=== PATIENT | male | born 1955 | race Caucasian/White ===

== ENCOUNTER 2022-02-17 15:19 | Outpatient (CLI) | payer MEDICARE, SELFPAY ==
--- NOTE | ~2022-02-17 | XR_ITS ---
EXAMINATION: XR abdomen/kub 1V INDICATION: Calcium kidney stone TECHNIQUE: Supine views of the abdomen were obtained on 2 radiographs. COMPARISON: CT from today FINDINGS: Bowel contents project over the kidneys limiting sensitivity for renal stones. A 3 mm stone is seen in the upper pole of the left kidney. Additional nonobstructing calculi identified on today' s CT examination are not seen. No stones project in the expected location of the ureters or bladder. A right pelvic phlebolith is noted. There is calcified atherosclerosis. The bowel gas pattern is norm al. IMPRESSION: 1. Left nephrolithiasis. Reviewed, dictated and finalized at location F. IMPRESSION: 1. Left nephrolithiasis.
--- NOTE | ~2022-02-17 | CT_ITS ---
EXAMINATION: CT abdomen pelvis wo con DATE: 02/17/2022 15:54 INDICATION: Calcium kidney stone TECHNIQUE: Computed tomography (CT) of the abdomen and pelvis was performed without intravenous contr ast. Automated exposure control and iterative reconstruction technique were employed. Exam dose: 443 .59 mGy-cm total exam DLP. COMPARISON: 02/17/2022 KUB FINDINGS: Minimal discoid atelectasis or scarring at the base of the lingula and lower lobes. No cons olidation at the lung bases. Normal heart size. No pericardial or pleural effusion. The liver, gallbladder, bile ducts, pancreas, pancreatic duct, spleen and adrenal glands are unremark able. Left renal mild scarring. 5.8 mm upper pole and 3.5 mm lower pole left renal calculi. 3.6 mm upper pole nonobstructing right renal calculus. Pinpoint nonobstructing lower pole right renal calculus. No ureteral calculus or hydroureteronephrosis of either kidney is noted. Probable bilateral renal cysts, measuring up to a little over 2 cm maximal dimension on the right, 1. 3 cm dimension on the left. Visceral lesions would be more accurately evaluated on a CT examination w ith IV contrast material. Normal appendix. Minimal diverticulosis of the colon; no CT evidence of diverticulitis. No bowel obst ruction, bowel wall thickening, pneumatosis or intraperitoneal free air. There is atherosclerotic calcification but normal caliber of the abdominal aorta and iliac arteries. The urinary bladder, prostate gland and seminal vesicles are unremarkable. Small bilateral fat-containing inguinal hernias, larger on the left. Small fat-containing umbilical hernia. Moderately prominent anterior wedge compression fracture deformity of L1, likely chronic. Degenerative changes of the lower thoracic and lumbar spine. IMPRESSION: Nonobstructive left and right mild nephrolithiasis Bilateral renal cysts Left renal scarring Minimal diverticulosis of the colon Normal appendix Reviewed, dictated and finalized at Location A. Reviewed, dictated and finalized at location A.
== END 2022-02-17 15:20 | disposition home or self-care (01) ==
PROVIDERS: PCP Internal Medicine; Visit Provider Urology
DX: N20.0 Calculus of kidney (principal); N28.1 Cyst of kidney, acquired
CPT/HCPCS: 74018; 74176

== ENCOUNTER 2022-04-07 09:58 | Outpatient (CLI) | payer MEDICARE, SELFPAY ==
--- NOTE | 2022-04-07 10:44 | ECG_ITS ---
Measurements Intervals [place] Rate: 98 P: 153 SD: 116 QRS: -29 QRSD: 97 T: -28 QT: 336 QTc: 429 Interpretive Statements SINUS RHYTHM WITH SHORT SD INTERVAL BORDERLINE LEFT AXIS DEVIATION [QRS AXIS < -20] CANNOT RULE OUT INFERIOR INFARCTION NONSPECIFIC T-WAVE ABNORMALITY ABNORMAL ECG NO PREVIOUS ECG AVAILABLE FOR COMPARISON Electronically Signed On 04-07-2022 12:28:57 CDT by Brando Campos M.D.
[2022-04-07 11:07] LABS: Basophils Absolute Auto 0.1 K/mm3 (0.0-0.1); Basophils Percent Auto 0.7 % (0.2-1.2); Eosinophils Absolute Auto 0.2 K/mm3 (0-0.3); Eosinophils Percent Auto 2.3 % (0-4.4); Hematocrit 56.5 % (42.0-52.0); Hemoglobin 18.3 g/dL (14.0-18.0); Immature Granulocyte Absolute 0.03 K/mm3 (0.00-0.031); Immature Granulocyte Percent A 0.4 % (0-0.5); Lymphocytes Absolute Auto 1.19 K/mm3 (0.9-3.2); Lymphocytes Percent Auto 16.2 % (18.3-44.2); Mean Corpuscular HGB Conc 32.4 g/dl (32-36); Mean Corpuscular Hemoglobin 29.7 pg (26-34); Mean Corpuscular Volume 91.6 fl (80-100); Mean Platelet Volume 10.7 fl (7.4-10.4); Monocytes Absolute Auto 0.5 K/mm3 (0.1-0.6); Monocytes Percent Auto 7.2 % (2.6-8.5); Neutrophils Absolute Auto 5.4 K/mm3 (1.3-6.7); Neutrophils Percent Auto 73.2 % (45.5-73.1); Platelet Count Result 185 k/mm3 (150-375); Red Blood Count 6.17 M/mm3 (4.6-6.20); Red Cell Distribution Width 13.8 % (11.5-14.5); White Blood Count 7.4 K/mm3 (4.5-10.0)
[2022-04-07 11:17] LABS: Alanine Aminotransferase 38 U/L (6-50); Albumin Level 4.8 g/dL (3.5-5.1); Alkaline Phosphatase 69 U/L (38-126); Anion Gap 10 mmol/L (8-16); Aspartate Amino Transferase 29 U/L (17-59); Bilirubin,Total 0.7 mg/dL (0.2-1.3); Blood Urea Nitrogen 23 mg/dL (9-20); Calcium 9.9 mg/dL (8.4-10.2); Carbon Dioxide 26 mmol/L (22-30); Chloride 97 mmol/L (98-107); Estimated Glomerular Filt Rate 60; Glucose 329 mg/dL (65-110); INR 1.1; Potassium 4.4 mmol/L (3.4-5.0); Prothrombin Time 13.5 Seconds (11.1-14.7); Sodium 133 mmol/L (137-145)
[2022-04-07 11:18] LABS: Partial Thromboplastin Time 31.8 SECONDS (22.3-36.8)
== END 2022-04-07 09:59 | disposition home or self-care (01) ==
LOC: ANHSURGERY 10:03
PROVIDERS: PCP Internal Medicine; Visit Provider Urology
DX: C61 Malignant neoplasm of prostate (principal); Z01.818 Encounter for other preprocedural examination; I10 Essential (primary) hypertension; R94.31 Abnormal electrocardiogram [ECG] [EKG]
CPT/HCPCS: 36415; 80053; 85025; 85610; 85730; 86850; 86900; 86901; 87086; 93005

== ENCOUNTER 2022-04-19 08:21 | Outpatient (CLI) | payer MEDICARE, SELFPAY ==
--- NOTE | 2022-04-19 | EST_ITS ---
Patient Info Name: Loyd Ellison Age: 67 years : 1955 Gender: Male Ht: 75 in Wt: 222 lbs BSA: 2.32 m2 HR: 92 bpm BP: 148 / 83 mmHg Heart Rhythm: Sinus Rhythm Exam Date: 04/19/2022 8:51 AM Exam Location: [facility] Stress Patient Status: Outpatient Admit Date: 04/19/2022 Staff Ordering Physician: Shannon, Moses Reyes MD Attending Provider: Shannon, Moses Reyes MD Exercise Technologist: Rimma Hawkins CT Exercise Physician: Leopoldo Wright DO Exam Type: CA stress test treadmill Study Info Indications Z01.810 - Encounter for preprocedural cardiovascular examination R94.31 - Abnormal electrocardiogram ECG EKG A treadmill exercise stress test was performed. Summary 1. 1. Negative Reg exercise stress test for ischemic ST changes by ECG criteria. 2. 2. Reduced functional capacity, achieving 7 METs of workload. 3. 3. Baseline hypertension. 4. 4. Appropriate HR response to exercise. 5. 5. Appropriate HR recovery at 1 minute post exercise. 6. 6. No imaging with stress testing. 7. 7. Patient informed of the above results. Protocol: Reg Stress ECG Details Stage: REST Duration (min): 1 min : 18 sec Speed (mph): 0.0 Grade (%): 0 HR (bpm): 91 SBP (mmHg): 148 DBP (mmHg): 83 METS: --- Stage: REST Duration (min): 5 min : 34 sec Speed (mph): 0.0 Grade (%): 0 HR (bpm): 91 SBP (mmHg): 148 DBP (mmHg): 83 METS: --- Stage: STAGE 1 Duration (min): 1 min : 0 sec Speed (mph): 1.7 Grade (%): 10 HR (bpm): 107 SBP (mmHg): 148 DBP (mmHg): 83 METS: --- Stage: STAGE 1 Duration (min): 2 min : 0 sec Speed (mph): 1.7 Grade (%): 10 HR (bpm): 118 SBP (mmHg): 148 DBP (mmHg): 83 METS: --- Stage: STAGE 1 Duration (min): 3 min : 0 sec Speed (mph): 1.7 Grade (%): 10 HR (bpm): 125 SBP (mmHg): 191 DBP (mmHg): 80 METS: --- Stage: STAGE 2 Duration (min): 1 min : 0 sec Speed (mph): 2.5 Grade (%): 12 HR (bpm): 135 SBP (mmHg): 191 DBP (mmHg): 80 METS: --- Stage: STAGE 2 Duration (min): 2 min : 0 sec Speed (mph): 2.5 Grade (%): 12 HR (bpm): 141 SBP (mmHg): 206 DBP (mmHg): 82 METS: --- Stage: STAGE 2 Duration (min): 3 min : 0 sec Speed (mph): 2.5 Grade (%): 12 HR (bpm): 145 SBP (mmHg): 206 DBP (mmHg): 82 METS: --- Stage: RECOVERY Duration (min): 0 min : 59 sec Speed (mph): 0.0 Grade (%): 0 HR (bpm): 128 SBP (mmHg): 209 DBP (mmHg): 80 METS: --- Stage: RECOVERY Duration (min): 1 min : 59 sec Speed (mph): 0.0 Grade (%): 0 HR (bpm): 109 SBP (mmHg): 209 DBP (mmHg): 80 METS: --- Stage: RECOVERY Duration (min): 2 min : 58 sec Speed (mph): 0.0 Grade (%): 0 HR (bpm): 106 SBP (mmHg): 194 DBP (mmHg): 82 METS: --- Rest HR: 91 bpm Peak HR: 145 bpm Rest Sys BP: 148 mmHg Peak Sys BP: 209 mmHg Max Pred HR: 1
== END 2022-04-19 08:22 | disposition home or self-care (01) ==
LOC: ANHCARD 08:27
PROVIDERS: PCP Internal Medicine; Visit Provider Internal Medicine
DX: R94.31 Abnormal electrocardiogram [ECG] [EKG] (principal); I10 Essential (primary) hypertension
CPT/HCPCS: 93017

== ENCOUNTER 2022-04-21 16:13 | Observation (INO) | payer MEDICARE, SELFPAY ==
--- NOTE | 2022-04-07 09:49 | PC.NURSE ---
Report to the Outpatient Waiting Room, entrance under the green pavilion located off [facility], at time _0600_ on date _04/20/22_. OR Time: _0730_. - You and your visitor will be asked a series of questions to screen for COVID 19 for your protection. - Only one visitor is allowed at this time. VISITING HOURS 10AM-8PM, USE MAIN HOSPITAL ENTRANCE - The patient visitor is requested to leave or wait in car when not with patient. - A mask is required within the hospital. Patients may have clear liquids (water, carbonated beverages, clear teas, apple juice) until 3 hours prior to surgery (0430 AM) with a maximum of 20 ounces. - No food from midnight until time of surgery Take the following medications with a SIP of water the morning of surgery: _NONE_ Medications to discontinue per DR. HENDERSON - ASPIRIN, ASPIRIN PRODUCTS, ADVIL, MOTRIN - etc., VITAMINS, SUPPLEMENTS, HERBAL SUPPLEMENTS 7 DAYS PRIOR TO SURGERY, Date to take last dose 04/12/22_ Please no deodorant, or body powder the day of surgery. No jewelry (including any body piercings) or valuables the day of surgery, leave them at home. Please take a shower or bath the night before, or the morning of, surgery with an antibacterial soap. Wear comfortable, loose fitting clothing. - Jewelry must be removed prior to entering the operating room. Rings and piercings that are not removed may be cut off. - The hospital will not accept responsibility for valuables. - Please leave all valuables, including medications, at home the day of surgery. If you are going home after surgery, a licensed ambulette driver must drive you home. - NO public transportation without another adult. - We recommend that an adult stay with you for 24 hours following discharge. - We also recommend that you do not drive, make important decision, drink alcoholic beverages, or take any drugs that were not prescribed by your health care provider for at least 24 hours after your discharge time. Follow any additional instructions given to you from your surgeon. If you or anyone in your household have experienced Covid symptoms in the past week, please notify your surgeon or the nurse liaison at the phone number below for possible testing. Instructions given to ___PT__and asked if any additional questions and then verbalized understanding. Patient advised to call surgeon office or pre surgery nurse liaison [phone] if any additional questions.
[2022-04-07 10:25] VITALS: BP 156/82; PULSE 100; RESP 20; TEMP 36.8; O2SAT 98; BMI 28.3
[2022-04-20] VITALS (16 sets, daily range): BP systolic 111–144; BP diastolic 56–93; PULSE 87–100; RESP 11–20; TEMP 35.8–36.8; O2SAT 90–100
--- NOTE | 2022-04-20 06:52 | WPDHPUPDATE1 ---
History and Physical Update Update Date/Time: 04/20/22 06:52 History and Physical has been reviewed, including an updated exam of the patient. There are NO changes in the patient's condition. Risks, benefits, and alternatives have been discussed and questions answered. Patient agrees to proceed with procedure. Proceed with robotic assist nerve sparing prostatectomy with possible plnd.
[2022-04-20 06:57] LABS: Glucose Point of Care 105 mg/dl (65-105)
--- NOTE | 2022-04-20 07:04 | WPDANESEPPF ---
Anes - Initial Pre Proc Eval Procedure: Operation Date: 04/20/22 07:30 Proposed Procedures p Robotic Assisted Nerve Sparing Prostatectomy, Possible Bilateral Pelvic Lymph Node Dissection - Alan Hebert MD Date/Time: 04/20/22 07:04 Surgeon: Alan Hebert MD Pre Op Diagnosis: Prostate Ca Patient Data Age: 67 Gender: M Height: 1.89 m Weight: 99.7 kg Last Vital Signs Temp 36.4 C L 04/20/22 06:10 Pulse 97 04/20/22 06:10 Resp 16 04/20/22 06:10 BP 144/80 H 04/20/22 06:10 Pulse Ox 94 04/20/22 06:10 O2 Del Method Room Air 04/20/22 06:10 Allergies Allergy/AdvReac Type Severity Reaction Status Date / Time ceftriaxone [From Rocepwin] Allergy Intermediate Hives,dizzi Verified 04/20/22 06:20 ness codeine AdvReac Mild Nausea Verified 04/20/22 06:20 Home Medications Medication Instructions Recorded Confirmed Type aspirin 81 mg tablet,delayed 81 mg PO DAILY 04/07/22 04/20/22 History release dapagliflozin 10 mg tablet 1 tablet QAM 04/07/22 04/20/22 History (Farxiga) dulaglutide 1.5 mg/0.5 mL 3 mg subcut WEEKLY 04/07/22 04/20/22 History subcutaneous pen injector (Trulicity) dutasteride 0.5 mg capsule 1 cap PO HS 04/07/22 04/20/22 History fosinopril 20 1 tablet BID 04/07/22 04/20/22 History mg-hydrochlorothiazide 12.5 mg tablet glimepiride 4 mg tablet 1 tablet BID 04/07/22 04/20/22 History insulin glargine U-300 conc 300 See Rx Instructions .Route .COMPLEX 04/07/22 04/20/22 History unit/mL (1.5 mL) subcutaneous pen (Touangel SoloStar U-300 Insulin) metformin 1,000 mg tablet 1,000 tablet BID 04/07/22 04/20/22 History rosuvastatin 40 mg tablet 1 tablet HS 04/07/22 04/20/22 History tadalafil 20 mg tablet 20 mg PO DAILY PRN Erectile 04/07/22 04/20/22 History Dysfunction Laboratory Tests 04/20/22 06:51 POC Capillary Glucose 105 mg/dl mg/dl (65-105) Patient hx anesthesia problems: none Family hx anesthesia problems: none Results Review: All pre-operative results and documents have been reviewed as part of the pre-operative evaluation. [facility] Past Medical History Medical History Diabetes Hyperlipidemia Hypertension Prostate CA Social History Social History Smoking status: Never smoker Second hand tobacco smoke exposure: No Alcohol intake: never Substance use: never Substance use type: does not use Living arrangements: with family Spiritual care concerns: No Anes - Eval Final PreProcedure Day of Procedure 04/20/22 07:04 Patient weight: overweight Heart: regular rate and rhythm Lungs: clear to auscultation Airway: Mallampati scale class II Neurological: alert and oriented Last oral intake: >/= 8 hours ASA classification: III Emergent: no Anesthetic plan: proceed Anesthesia type and monitoring: general ETT and standard monitoring Results Review: All pre-operative results and documents have been reviewed as part of the pre-operative evaluation. Informed Consent: The patient's anesthetic plan and its attendant risks and benefits were discussed with the patient/family/POA. Questions were solicited and answers provided to the satisfaction of the patient/family/POA.
[2022-04-20] MEDS: LACTATED RINGERS 1,000 ML 30 ML IV CONT ×2 (07:09→12:05)
[2022-04-20] MEDS: SCOPOLAMINE 1.5 MG PATCH TRANSDERM (07:29)
[2022-04-20] MEDS: levoFLOXacin 500 MG/D5W 100 ML 500 MG/100 ML BAG 100 MG IVPB (07:30)
--- NOTE | 2022-04-20 11:42 | P.OP_ITS ---
Procedure Note - Detailed Date of Procedure 04/20/22 Pre-op Diagnosis Prostate Ca Post-op Diagnosis Same Procedure Performed Robotic assisted nerve-sparing prostatectomy with right pelvic lymph node dissection Surgeon Alan Hebert MD Anesthesia General Description of Procedure Patient is taken to the operative suite correctly identified. Once anesthesia was obtained was placed in low-lying dorsal lithotomy position and prepped and draped in usual sterile fashion with all pressure points padded. Sixteen [place] Klein was placed with 15 cc in the balloon. Supraumbilical incision was then made carried down to the rectus fascia. Veress needle was inserted but I did not feel comfortable that it was entering into the abdominal cavity. We thus did a cutdown and placed the Beverly on under direct vision. Camera was then inserted. The abdomen was insufflated to 15 mmHg pressure. Working ports were placed in appropriate location. Patient was placed in a steep Trendelenburg position. The robot was docked. Posterior approach was then performed. Seminal vesicles were dissected out in their entirety. Vas were transected. Plane between the prostate and rectum was developed. Bladder was then taken down. Endopelvic fascia was incised bilaterally. Puboprostatic score transected. Dorsal venous complex was isolated using 0 Vicryl. This was secured to the pubic bone. Bladder neck sparing procedure was then performed. Posterior plane was incised the previously dissected seminal vesicles and vas were isolated. Bilateral nerve-sparing was performed. Pedicles were clipped. Patient has an extremely small prostate measuring approximately 20 cc. Dorsal venous complex was then transected. Urethra was also transected with a nice urethral stump. The specimen was placed in Endo-Catch bag. Right pelvic lymph node dissection was then performed with the boundaries being the external iliac vein, obturator nerve, Tahir's ligament, bifurcation of the vessels. Clips were placed proximally and distally. These also were placed in the Endo-Catch bag. The wound was irrigated. Surgicel was placed in the right obturator fossa and over the neurovascular bundles. A Augustus stitch was then placed using 0 Vicryl. The bladder neck was then reanastomosed to the urethra with good mucosa to mucosa approximation. V lock suture was then used for that. This was done in the running fashion. Sixteen [place] Klein was placed with 10 cc in the balloon. The bladder was filled with 200 cc of normal saline there was no evidence of extravasation. A lap count needle count sponge counts were correct. The robot was undocked. Specimens brought out through the midline incision. Rectus fascia was closed using 0 Vicryl running fashion. The incisions were anesthetized 1% Marcaine. Subcuticular stitches were then placed. Patient tolerated procedure well without any complications and was taken recovery stable condition. Estimated Blood Loss 50 Drains Yes Packing No Pathology Yes Complications No immediate complications Condition Stable Disposition PACU
[2022-04-20 12:10] LABS: Glucose Point of Care 201 mg/dl (65-105)
[2022-04-20] MEDS: fentaNYL CITRATE INJ (*CRX) 100 MCG/2 ML VIAL 25 MCG IV PUSH ×3 (12:48→14:09)
--- NOTE | 2022-04-20 15:06 | ADMGEN ---
This patient, Loyd Ellison, was admitted to Medical Room 259-01. Patient/family oriented to hospital policies and general routines including ID bracelet, bed and alarms, visiting hours, pain management, procedures, bathroom and other care routines, personal items, smoking policy, room service/diet, and visiting hours. Information on how to activate the Rapid Response Team has been discussed. Patient/Family are encouraged to report perceived risks to care and to ask questions if they do not understand what they are told or what they should do.
[2022-04-20] MEDS: MORPHINE SULFATE (*CRX) 2 MG/ML INJ IV PUSH ×2 (15:44→19:48)
[2022-04-20] MEDS: LACTATED RINGERS 1,000 ML 125 ML IV CONT ×2 (15:45→23:52)
[2022-04-20] MEDS: GLIMEPIRIDE 2 MG TABLET 4 MG BY MOUTH (17:06)
[2022-04-20] MEDS: metFORMIN HCL 500 MG TABLET 1000 MG PO (17:06)
[2022-04-20] MEDS: DOCUSATE SODIUM 100 MG CAPSULE PO (17:07)
[2022-04-20 17:21] LABS: Glucose Point of Care 166 mg/dl (65-105)
[2022-04-20] MEDS: ROSUVASTATIN 10 MG TABLET 40 MG BY MOUTH (21:19)
[2022-04-20] MEDS: lisinopriL 20 MG TABLET BY MOUTH (21:19)
[2022-04-20] MEDS: hydroCHLOROthiazide 12.5 MG CAPSULE BY MOUTH (21:19)
[2022-04-20 21:46] LABS: Glucose Point of Care 174 mg/dl (65-105)
[2022-04-20] MEDS: KETOROLAC 15 MG/ML VIAL (*BKC) IV PUSH (22:12)
[2022-04-21] VITALS (8 sets, daily range): BP systolic 93–126; BP diastolic 49–65; PULSE 78–111; RESP 14–20; TEMP 36–37.1; O2SAT 93–98
--- NOTE | ~2022-04-21 | CT_ITS ---
EXAMINATION: CT abdomen pelvis wo con DATE: 04/22/2022 08:10 INDICATION: Abdomen pain post robotic prostatectomy. TECHNIQUE: Computed tomography (CT) of the abdomen and pelvis was performed without intravenous contr ast. The dose-length product was 1126.19 mGy-cm. Automated exposure control and iterative reconstruct ion technique were employed. COMPARISON: CT dated 02/17/2022 FINDINGS: Small pleural effusions. Bibasilar dependent airspace consolidation, right greater than lef t. Size normal. There is moderate subcutaneous gas and the right abdomen. There is free intraperitone al air, likely related to recent surgery. There is a drainage catheter in the pelvis. There are subtl e stranding in the pelvis, surrounding the bladder, likely postoperative. Klein catheter present in t he bladder. There is gas extending into the inguinal canals bilaterally. There is atherosclerosis wit hout aneurysm. The liver, spleen, pancreas, adrenal glands are unremarkable. There are nonobstructing bilateral hamida l stones. There are low-density lesions in both kidneys, most likely benign cysts. Pattern. Colonic d iverticulosis without evidence for diverticulitis. The liver, spleen, pancreas, adrenal glands are un remarkable. No discrete walled off fluid collection to suggest abscess. Moderate lower thoracic and l umbar spondylosis. Mild chronic wedge compression deformity of L1, unchanged. IMPRESSION: 1. Bibasilar airspace disease which may represent atelectasis and/or pneumonia. 2: Small pleural effusions. 3: Moderate free intraperitoneal air and extensive subcutaneous gas, likely postsurgical. Drainage ca theter present in the pelvis. Klein catheter in the bladder. No walled off fluid collection to sugges t abscess. 4: Nonobstructing bilateral nephrolithiasis. Reviewed, dictated and finalized at location A. IMPRESSION: 1. Bibasilar airspace disease which may represent atelectasis and/or pneumonia. 2: Small pleural effusions. 3: Moderate free intraperitoneal air and extensive subcutaneous gas, likely pos tsurgical. Drainage catheter present in the pelvis. Klein catheter in the bladd er. No walled off fluid collection to suggest abscess. 4: Nonobstructing bilateral nephrolithiasis.
[2022-04-21] MEDS: KETOROLAC 15 MG/ML VIAL (*BKC) IV PUSH ×2 (04:50→12:29)
[2022-04-21 06:04] LABS: Hematocrit 43.5 % (42.0-52.0); Hemoglobin 14.5 g/dL (14.0-18.0)
[2022-04-21 06:19] LABS: Anion Gap 4 mmol/L (8-16); Blood Urea Nitrogen 19 mg/dL (9-20); Calcium 7.6 mg/dL (8.4-10.2); Carbon Dioxide 28 mmol/L (22-30); Chloride 101 mmol/L (98-107); Estimated CRCL calculation 74 ml/min; Estimated Glomerular Filt Rate > 60; Glucose 189 mg/dL (65-110); Potassium 3.6 mmol/L (3.4-5.0); Sodium 133 mmol/L (137-145)
[2022-04-21 07:38] LABS: Glucose Point of Care 162 mg/dl (65-105)
--- NOTE | 2022-04-21 08:08 | WPDUROPN2 ---
Progress Note: A&P Assessment and Plan (1) Adenocarcinoma of prostate: Code(s): C61 - Malignant neoplasm of prostate Status: Acute Assessment and Plan: Doing well overall. Blood pressure slightly low this morning. Will recheck. If still low will hold his lisinopril. Re-evaluate this afternoon for possible discharged home. Will monitor CASS output. Subjective Subjective Date/Time Seen: 04/21/22 08:08 Post Op day: 1 (Robotic assisted nerve-sparing prostatectomy with right pelvic lymph node dissection) Principal diagnosis: Adenocarcinoma prostate Interval history: Doing well overall. Had some abdominal discomfort which is not unusual postoperatively. At the current time he is sitting in a chair eating breakfast. He is feeling better this morning. Review of Systems Review of Systems: All systems reviewed & are unremarkable except as noted in HPI and below Exam Const: General: cooperative and comfortable Resp: Effort & Inspection: normal respiratory effort Urinary Catheter: Urinary Catheter: patent and draining and urine clear Objective Data Vital Signs Vital Signs: Vital Signs - 24 hr 04/20/22 12:04 04/20/22 12:20 04/20/22 12:30 Temperature 36.4 C L Pulse Rate 89 87 90 Respiratory Rate 11 L 18 18 Blood Pressure 143/89 H 143/91 H 138/93 H Pulse Oximetry 100 100 94 Oxygen Delivery Simple Face Mask Simple Face Mask Room Air Oxygen Flow Rate 6 6 04/20/22 12:45 04/20/22 13:00 04/20/22 13:15 Temperature Pulse Rate 89 92 94 Respiratory Rate 16 14 16 Blood Pressure 125/86 115/84 123/82 Pulse Oximetry 94 94 95 Oxygen Delivery Nasal Cannula Nasal Cannula Nasal Cannula Oxygen Flow Rate 2 2 2 04/20/22 13:30 04/20/22 13:47 04/20/22 14:00 Temperature Pulse Rate 94 93 97 Respiratory Rate 18 16 16 Blood Pressure 111/82 132/89 119/81 Pulse Oximetry 96 95 95 Oxygen Delivery Nasal Cannula Nasal Cannula Nasal Cannula Oxygen Flow Rate 2 2 1 04/20/22 14:15 04/20/22 14:45 04/20/22 15:00 Temperature 35.8 C L 35.9 C L Pulse Rate 96 96 92 Respiratory Rate 16 14 15 Blood Pressure 123/81 127/70 128/75 Pulse Oximetry 90 93 96 Oxygen Delivery Room Air Oxygen Flow Rate 04/20/22 15:30 04/20/22 16:30 04/20/22 20:06 Temperature 36.7 C 36.8 C 36.7 C Pulse Rate 92 94 100 Respiratory Rate 16 16 20 Blood Pressure 118/56 L 135/69 114/61 Pulse Oximetry 97 94 92 Oxygen Delivery Oxygen Flow Rate 04/21/22 00:06 04/21/22 00:23 04/21/22 03:22 Temperature 36.6 C 36.6 C 36.0 C L Pulse Rate 94 94 95 Respiratory Rate 20 20 20 Blood Pressure 104/52 L 104/52 L 93/49 L Pulse Oximetry 93 93 96 Oxygen Delivery Oxygen Flow Rate Intake/Output Intake/Output: Intake & Output 04/18/22 04/19/22 04/20/22 04/21/22 23:59 23:59 23:59 23:59 Intake Total 1540 390 Output Total 210 1060 Balance 1330 -670 Meds/Results Medications: Active Medications Generic Name Dose Route Start Last Admin Trade Name Freq PRN Reason Stop Dose Admin Hydrocodone Bitart/Acetaminophen 2 tab 04/20/22 14:21 Hydrocodone/Acetaminophen (*Crx) 5-325 Mg Tablet PO Q6H PRN Pain Rated 4-6 Hydrocodone Bitart/Acetaminophen 1 tab 04/20/22 14:21 Hydrocodone/Acetaminophen (*Crx) 5-325 Mg Tablet PO Q6H PRN Pain Rated 1-3 Docusate Sodium 100 mg 04/20/22 17:00 04/20/22 17:07 Docusate Sodium 100 Mg Capsule PO 100 mg BID SAVANAH Administration Glimepiride 4 mg 04/20/22 17:00 04/20/22 17:06 Glimepiride 2 Mg Tablet BY MOUTH 4 mg BIDWM SAVANAH Administration Hydrochlorothiazide 12.5 mg 04/20/22 21:00 04/20/22 21:19 Hydrochlorothiazide 12.5 Mg Capsule BY MOUTH 12.5 mg Q12HR SAVANAH Administration Hyoscyamine 0.125 mg 04/20/22 14:21 Hyoscyamine Sulfate 0.125 Mg Tablet SUBLINGUAL Q4H PRN Bladder Spasm Lactated Ringer's 1,000 mls @ 125 mls/hr 04/20/22 14:21 04/20/22 23:52 Lr - Lactated Ringers Iv IV CONT 125 mls/hr .Q8H
[2022-04-21] MEDS: LACTATED RINGERS 1,000 ML 125 ML IV CONT ×2 (08:20→16:51)
[2022-04-21] MEDS: metFORMIN HCL 500 MG TABLET 1000 MG PO ×2 (08:20→16:52)
[2022-04-21] MEDS: levoFLOXacin 500 MG TABLET PO (08:21)
[2022-04-21] MEDS: DOCUSATE SODIUM 100 MG CAPSULE PO ×2 (08:21→16:51)
[2022-04-21] MEDS: GLIMEPIRIDE 2 MG TABLET 4 MG BY MOUTH ×2 (08:22→16:50)
--- NOTE | 2022-04-21 09:48 | WPDANESPN ---
Anes - Prog Note Post-Op Date/Time: 04/21/22 09:48 Vital Signs: Last Vital Signs Temp 37.1 C 04/21/22 08:00 Pulse 111 H 04/21/22 08:00 Resp 14 04/21/22 08:00 BP 97/50 L 04/21/22 08:00 Pulse Ox 96 04/21/22 08:00 O2 Del Method Room Air 04/21/22 08:00 O2 Flow Rate 1 04/20/22 14:00 Pain Score (VAS): 0 I/O: Intake & Output 04/20/22 04/21/22 04/21/22 23:59 07:59 15:59 Intake Total 1240 1390 480 Output Total 30 1060 Balance 1210 330 480 Laboratory Tests 04/21/22 05:43 04/21/22 05:43 04/20/22 04/20/22 04/20/22 12:08 17:08 21:30 Hgb Hct Sodium Potassium Chloride Carbon Dioxide Anion Gap BUN Creatinine Estim Creat Clear Calc Estimated GFR Glucose POC Capillary Glucose 201 H 166 H 174 H Calcium 04/21/22 04/21/22 04/21/22 05:43 05:43 07:35 Hgb 14.5 D Hct 43.5 Sodium 133 L Potassium 3.6 Chloride 101 Carbon Dioxide 28 Anion Gap 4 L BUN 19 Creatinine 1.00 Estim Creat Clear Calc 74 Estimated GFR > 60 Glucose 189 H POC Capillary Glucose 162 H Calcium 7.6 L Patient Feedback: Patient satisfied with anesthetic care.
[2022-04-21 11:27] LABS: Glucose Point of Care 243 mg/dl (65-105)
[2022-04-21 16:27] LABS: Glucose Point of Care 172 mg/dl (65-105)
[2022-04-21] MEDS: ROSUVASTATIN 10 MG TABLET 40 MG BY MOUTH (21:54)
[2022-04-21] MEDS: traMADol HCL (*CRX) 50 MG TABLET PO (21:54)
[2022-04-21] MEDS: lisinopriL 20 MG TABLET BY MOUTH (21:54)
[2022-04-22] MEDS: LACTATED RINGERS 1,000 ML 125 ML IV CONT (01:03)
[2022-04-22] MEDS: HYOSCYAMINE SULFATE 0.125 MG TABLET SUBLINGUAL (01:09)
[2022-04-22] MEDS: MORPHINE SULFATE (*CRX) 2 MG/ML INJ IV PUSH (02:08)
[2022-04-22 02:21] VITALS: BP 133/71; PULSE 90; RESP 20; TEMP 36.4; O2SAT 95
[2022-04-22 03:13] LABS: Glucose Point of Care 184 mg/dl (65-105)
[2022-04-22] MEDS: traMADol HCL (*CRX) 50 MG TABLET PO ×2 (06:25→15:36)
[2022-04-22 06:32] VITALS: BP 122/76; PULSE 92; RESP 16; TEMP 36.4; O2SAT 96
[2022-04-22 06:36] LABS: Hematocrit 43.6 % (42.0-52.0); Hemoglobin 14.5 g/dL (14.0-18.0); Mean Corpuscular HGB Conc 33.3 g/dl (32-36); Mean Corpuscular Hemoglobin 30.3 pg (26-34); Mean Corpuscular Volume 91.2 fl (80-100); Mean Platelet Volume 11.1 fl (7.4-10.4); Platelet Count Result 141 k/mm3 (150-375); Red Blood Count 4.78 M/mm3 (4.6-6.20); Red Cell Distribution Width 13.2 % (11.5-14.5); White Blood Count 8.9 K/mm3 (4.5-10.0)
[2022-04-22 06:40] LABS: Anion Gap 1 mmol/L (8-16); Blood Urea Nitrogen 14 mg/dL (9-20); Calcium 7.6 mg/dL (8.4-10.2); Carbon Dioxide 32 mmol/L (22-30); Chloride 102 mmol/L (98-107); Estimated CRCL calculation 81 ml/min; Estimated Glomerular Filt Rate > 60; Glucose 135 mg/dL (65-110); Potassium 3.7 mmol/L (3.4-5.0); Sodium 135 mmol/L (137-145)
--- NOTE | 2022-04-22 07:37 | WPDUROPN2 ---
Progress Note: A&P Assessment and Plan (1) Adenocarcinoma of prostate: Code(s): C61 - Malignant neoplasm of prostate Status: Acute Assessment and Plan: Patient ambulating and without fevers. Has some new abdominal discomfort in the upper quadrant bilaterally. Etiology is unclear at this time. He had been passing gas. Question of ileus (2) Abdominal pain: Code(s): R10.9 - Unspecified abdominal pain Status: Acute Assessment and Plan: Obtain CT abdomen pelvis without contrast to initiate evaluation. Subjective Subjective Date/Time Seen: 04/22/22 07:37 Post Op day: 2 (Robotic assisted nerve-sparing prostatectomy with right pelvic lymph node dissection) Principal diagnosis: Adenocarcinoma prostate Interval history: Loyd is feeling little worse today. He is afebrile with normal labs but he has little more abdominal distention and more discomfort in the upper quadrant bilaterally. He is not passing flatus today. Denies any nausea or emesis. Review of Systems Review of Systems: All systems reviewed & are unremarkable except as noted in HPI and below Exam Const: General: cooperative; No comfortable Chest: Chest palpation & inspection: normal inspection of the chest Resp: Effort & Inspection: decreased respiratory effort (Due to abdominal discomfort) Cardio: Rate: regular rate Rhythm: regular rhythm GI: Inspection: distended GI Palp: Yes abdominal tenderness (Upper quadrant bilaterally), No Guarding due to palpation present (GI) and No Rigid due to palpation Urinary Catheter: Urinary Catheter: patent and draining and urine clear Objective Data Vital Signs Vital Signs: Vital Signs - 24 hr 04/21/22 08:00 04/21/22 08:00 04/21/22 10:25 Temperature 37.1 C 36.8 C Pulse Rate 111 H 78 Respiratory Rate 14 16 Blood Pressure 97/50 L 106/55 L Pulse Oximetry 96 98 Oxygen Delivery Room Air 04/21/22 13:43 04/21/22 20:00 04/21/22 21:00 Temperature 36.3 C L 36.4 C Pulse Rate 87 91 Respiratory Rate 16 16 Blood Pressure 100/57 L 126/65 Pulse Oximetry 97 97 Oxygen Delivery Room Air 04/21/22 23:46 04/22/22 02:21 04/22/22 06:32 Temperature 36.5 C 36.4 C 36.4 C Pulse Rate 107 H 90 92 Respiratory Rate 20 20 16 Blood Pressure 106/57 L 133/71 122/76 Pulse Oximetry 95 95 96 Oxygen Delivery Intake/Output Intake/Output: Intake & Output 04/19/22 04/20/22 04/21/22 04/22/22 23:59 23:59 23:59 23:59 Intake Total 1540 3970 1350 Output Total 210 1960 3085 Balance 1330 2009 -173 Meds/Results Medications: Active Medications Generic Name Dose Route Start Last Admin Trade Name Freq PRN Reason Stop Dose Admin Docusate Sodium 100 mg 04/20/22 17:00 04/21/22 16:51 Docusate Sodium 100 Mg Capsule PO 100 mg BID SAVANAH Administration Glimepiride 4 mg 04/20/22 17:00 04/21/22 16:50 Glimepiride 2 Mg Tablet BY MOUTH 4 mg BIDWM SAVANAH Administration Hydrochlorothiazide 12.5 mg 04/20/22 21:00 04/21/22 21:50 Hydrochlorothiazide 12.5 Mg Capsule BY MOUTH Not Given Q12HR SAVANAH Hyoscyamine 0.125 mg 04/20/22 14:21 04/22/22 01:09 Hyoscyamine Sulfate 0.125 Mg Tablet SUBLINGUAL 0.125 mg Q4H PRN Administration Bladder Spasm Lactated Ringer's 1,000 mls @ 125 mls/hr 04/20/22 14:21 04/22/22 01:03 Lr - Lactated Ringers Iv IV CONT 125 mls/hr .Q8H SAVANAH Administration Levofloxacin 500 mg 04/21/22 09:00 04/21/22 08:21 Levofloxacin 500 Mg Tablet PO 500 mg DAILY SAVANAH Administration Lisinopril 20 mg 04/20/22 21:00 04/21/22 21:54 Lisinopril 20 Mg Tablet BY MOUTH 20 mg Q12HR SAVANAH Administration Metformin HCl 1,000 mg 04/20/22 17:00 04/21/22 16:52 Metformin Hcl 500 Mg Tablet PO 1,000 mg BIDWM SAVANAH Administration Morphine Sulfate 2 mg 04/20/22 14:21 04/22/22 02:08 Morphine Sulfate (*Crx) 2 Mg/Ml Inj IV PUSH 2 mg Q2H PRN Administration Pain Rated 7-10 Naloxone HCl 0.1 mg 04/20/22
[2022-04-22 07:50] LABS: Glucose Point of Care 161 mg/dl (65-105)
[2022-04-22] MEDS: hydroCHLOROthiazide 12.5 MG CAPSULE BY MOUTH (08:24)
[2022-04-22] MEDS: levoFLOXacin 500 MG TABLET PO (08:24)
[2022-04-22] MEDS: DOCUSATE SODIUM 100 MG CAPSULE PO ×2 (08:24→16:59)
[2022-04-22] MEDS: lisinopriL 20 MG TABLET BY MOUTH (08:24)
[2022-04-22] MEDS: metFORMIN HCL 500 MG TABLET 1000 MG PO (08:24)
[2022-04-22] MEDS: GLIMEPIRIDE 2 MG TABLET 4 MG BY MOUTH (08:24)
[2022-04-22 11:42] LABS: Glucose Point of Care 226 mg/dl (65-105)
[2022-04-22 14:15] VITALS: BP 127/80; PULSE 103; RESP 16; TEMP 36.9; O2SAT 98
--- NOTE | 2022-04-22 16:14 | PM.DS ---
DS: Admitting Diagnosis Discharge Date 04/22/22 Admitting Diagnosis Prostate Cancer DS: Discharge Diagnosis Discharge Diagnosis Plan Prostate Cancer DS: Summary Hospital Course Hospital Course: The patient underwent a Robotic assisted nerve-sparing prostatectomy with right pelvic lymph node dissection with Dr. Hebert on 04/20/22 and tolerated the procedure well. He was then transferred to recovery in stable condition and to the floor for further observation. He did c/o nausea the first evening after surgery but was able to keep food and drink down. This resolved the following morning and he was able to get up and move around his room and sit up in the chair, although he was struggling with abdominal pain and fatigue as well as hypotension. His lisinopril was held and his BP improved as of today, but his abdominal this morning was still present, his labs appeared to be stable in the fact that he didn't appear to be anemic or hypotensive from blood loss, therefore a CT scan was done and came back showing no post operative abnormality. As the day went on he was able to get up and walk the halls near his room more and alleviate some of the pain which appears to be gas pain. He is feeling much better this afternoon and will go home as his CT also shows no bowel obstruction. He will resume a diabetic diet a home, activity is no straining and he will resume all home medications except Aspirin which will be held until 04/28/22. Status at Discharge Functional status at discharge: independent ambulation Overall status at discharge: patient is progressing back to baseline Time Spent with Patient Time attestation: Total time spent providing and/or coordinating discharge services: Time spent: Greater than 30 minutes Exam Const: General: comfortable Resp: Effort & Inspection: normal respiratory effort Cardio: Rate: regular rate GI: Inspection: incision (all are well intact, no drainage or edema present) GI Palp: Yes Soft to palpation and No Tenderness to palpation present (GI) : General: Yes no CVA tenderness Urinary Catheter: Urinary Catheter: patent and draining and urine clear Extrem: Right lower extremity: no edema Left lower extremity: no edema DS: Data Data Completed and Pending Pending studies at discharge: Pending at discharge 04/20/22 11:34 Surgical [PTH] Routine Labs on day of discharge: Labs from last 24 hours 04/22/22 04/22/22 04/22/22 11:34 07:39 05:59 WBC RBC Hgb Hct MCV MCH MCHC RDW Plt Count MPV Sodium 135 L Potassium 3.7 Chloride 102 Carbon Dioxide 32 H Anion Gap 1 L BUN 14 D Creatinine 0.90 Estim Creat Clear Calc 81 Estimated GFR > 60 Glucose 135 H POC Capillary Glucose 226 H 161 H Calcium 7.6 L 04/22/22 04/21/22 04/21/22 05:59 21:19 16:21 WBC 8.9 RBC 4.78 Hgb 14.5 Hct 43.6 MCV 91.2 MCH 30.3 MCHC 33.3 RDW 13.2 Plt Count 141 L MPV 11.1 H Sodium Potassium Chloride Carbon Dioxide Anion Gap BUN Creatinine Estim Creat Clear Calc Estimated GFR Glucose POC Capillary Glucose 184 H 172 H Calcium Discharge Plan Discharge Attending physician on discharge: Alan Hebert Discharging Clinician: Stacy Salomon Anticipated Discharge Date/Time: 04/22/22 16:07 Patient Disposition: Home, Self-Care Activity: may shower Diet: as tolerated Discharge Instructions: You will follow up next week first for your cystogram in radiology at [facility] on 04/28/22 11am, arrive at 10:30 to register at and then immediately after that in the office to have your roa removed if your cystogram is normal. You should avoid submerging into water such as a swimming pool, hot tub, river, [place] etc. for 4 weeks until your incisions have healed. You can shower, wash your incisions gently with soap and water and then pat dry with towel.
== END 2022-04-22 17:10 | disposition home or self-care (01) ==
LOC: ANHSURGERY 16:15 → ANH2MED 16:15
PROVIDERS: Nurse Practitioner Adult Health; Admitting Provider Urology; PCP Internal Medicine; Visit Provider Urology
PROC: 0VT04ZZ Resection of Prostate, Percutaneous Endoscopic Approach (ICD-10-PCS; CPT 55867; principal; 2022-04-20 07:30)
DX: C61 Malignant neoplasm of prostate (principal); G89.18 Other acute postprocedural pain; I95.81 Postprocedural hypotension; R10.10 Upper abdominal pain, unspecified; E11.9 Type 2 diabetes mellitus without complications; Z79.84 Long term (current) use of oral hypoglycemic drugs
CPT/HCPCS: 55866; 38571; S2900; 36415; 74176; 80048; 82948; 85014; 85018; 85027; 88309; A9270; G0378; J1170; J1885; J1956; J2250; J2270; J2405; J2704; J2710; J3010; J7030; J7120

== ENCOUNTER 2022-04-28 10:22 | Outpatient (CLI) | payer MEDICARE, SELFPAY ==
--- NOTE | ~2022-04-28 | XR_ITS ---
XR cystogram DATE: 04/28/2022 11:18 INDICATION: Prostate surgery TECHNIQUE: Fluoroscopy and spot images of the urinary bladder were performed during retrograde gravit y driven instillation of 250 mL of dilute Omnipaque 350 contrast material through an existing Klein c atheter 0.6 minutes fluoroscopy time 24.191 DAP 10 images COMPARISON: None FINDINGS: There is mild mucosal chronic elevation of the urinary bladder. There is no extravasation o f contrast material from the bladder lumen or vesicoureteral reflux. IMPRESSION: No significant abnormality Reviewed, dictated and finalized at [facility] Reviewed, dictated and finalized at [facility]. IMPRESSION: No significant abnormality
== END 2022-04-28 10:23 | disposition home or self-care (01) ==
PROVIDERS: PCP Internal Medicine; Visit Provider Urology
DX: C61 Malignant neoplasm of prostate (principal)
CPT/HCPCS: 51600; 74430; Q9967